=== PATIENT | female | born 1965 | race Caucasian/White ===

== ENCOUNTER 2017-07-03 00:38 | Inpatient (IN) | payer OTHER ==
[2017-07-02 15:54] LABS: INR 0.89
[~2017-07-03] VITALS: Ht 157.5 cm; Wt 104.8 kg
[2017-07-03] VITALS (16 sets, daily range): BP systolic 126–158; BP diastolic 78–98
[~2017-07-03 00:38] MED LIST: DICL100T54 PO; GABA-549 PO; HYDR-4309 PO; LEVO-3 PO; LEVO50TA86 PO; MELO-149 PO
[2017-07-03] MEDS ORDERED: ONDANSETRON 4 MG/2 ML VIAL ONE (05:57)
[2017-07-03] MEDS ORDERED: DEXAMETHASONE SOD PHOS 10MG/ML ONE (05:57)
[2017-07-03] MEDS ORDERED: PROPOFOL EMUL(*) 10MG/ML 20 ML 20 ML ONE (05:57)
[2017-07-03] MEDS ORDERED: LIDOCAINE MPF 1% 5 ML VIAL ONE (05:57)
[2017-07-03] MEDS ORDERED: fentaNYL CITR 100 MCG/2 ML AMP ONE (05:57)
[2017-07-03] MEDS ORDERED: LIDOCAINE/SOD BICARB 8.4% SYR ID ONE (06:00)
[2017-07-03] MEDS ORDERED: TRANEXAMIC AC 1000 MG/10ML SDV 1,000 MG in DEXTROSE 5% 50 ML BAG 50 ML IV ONE (06:00)
[2017-07-03] MEDS ORDERED: NORMOSOL R SOLN(*) 1000 ML BAG 1,000 ML IV PRN ×2 (06:00→10:00)
[2017-07-03] MEDS ORDERED: MIDAZOLAM 2 MG/2 ML VIAL IVP PRN (06:00)
[2017-07-03] MEDS ORDERED: FAMOTIDINE 20 MG TAB PO ONE (06:00)
[2017-07-03] MEDS ORDERED: cloNIDine EPIDUR INJ 100MCG/ML 40 MCG, ROPIVACAINE 0.5% 20 ML VIAL 25 ML, EPINEPHrine H... INJ ONE (06:00)
[2017-07-03] MEDS ORDERED: ceFAZolin(*) 2GM/D5W 50ML 50 ML IVPB ONE (06:00)
[2017-07-03] MEDS ORDERED: KETAMINE HCL 200 MG/20 ML MDV ONE (06:04)
[2017-07-03] MEDS ORDERED: HALOPERIDOL LACT 5 MG/ML VIAL IM ONE (06:07)
[2017-07-03] MEDS ORDERED: ACETAMINOPHEN(*)1000 MG/100 ML 100 ML IVPB ONE (06:07)
[2017-07-03] MEDS ORDERED: ROCURONIUM BROM 10 MG/ML 5 ML ONE (07:15)
[2017-07-03] MEDS ORDERED: ePHEDrine 25 MG/5 ML DISP.SYR IVP ONE (07:57)
[2017-07-03] MEDS ORDERED: PROMETHAZINE 25 MG/ML 1 ML AMP IVP PRN (10:00)
[2017-07-03] MEDS ORDERED: FLUSH 10 ML SYR IVP PRN (10:00)
[2017-07-03] MEDS ORDERED: MAGNESIUM HYDROXIDE* 30ML UDCP PO PRN (10:00)
[2017-07-03] MEDS ORDERED: NALOXONE HCL 0.4 MG/ML VIAL IVP PRN (10:00)
[2017-07-03] MEDS ORDERED: ZOLPIDEM TARTRATE 5 MG TAB PO PRN (10:00)
[2017-07-03] MEDS ORDERED: BISACODYL 10 MG SUPP PR PRN (10:00)
[2017-07-03] MEDS ORDERED: ONDANSETRON 4 MG/2 ML VIAL IVP PRN (10:00)
[2017-07-03] MEDS ORDERED: MORPHINE SULFATE 30 MG PCA IV PRN (10:00)
--- NOTE | 2017-07-03 10:13 | RADIOLOGY IMAGING REPORT ---
FACILITY: [facility] PATIENT NAME: Emely Staton : 1965 MR: [id number] V: [id number] EXAM DATE: ORDERING PHYSICIAN: AKASH BLACKWELL TECHNOLOGIST: Location: [facility] [place] Patient: Emely Staton : 1965 Visit/Account:[id number] Date of Sevice: 07/03/2017 Right knee Indication: Right total knee arthroplasty Comparison: None available Findings: 2 views right knee were obtained. Operative changes seen from right total knee arthroplasty. Alignment anatomic. Components are well se ated. Expected soft tissue changes. IMPRESSION: 1. Expected postoperative appearance status post right total knee arthroplasty Report Dictated By: Alex Fernández MD at 07/03/2017 10:09 AM Report E-Signed By: Alex Fernández MD at 07/03/2017 10:09 AM WSN:[id number]
[2017-07-03] MEDS ORDERED: HYDR-385 PO (10:56)
[2017-07-03] MEDS: ACETAMINOPHEN 500 MG TAB PO SCH ×3 (12:40→23:08)
--- NOTE | 2017-07-03 14:52 | OPERATIVE REPORT 1 ---
EVENT DATE: July 03, 2017 SURGEON: Seb Cee MD ANESTHESIOLOGIST: Andrew Sparks MD ANESTHESIA: Spinal followed by general. WARRANTY ADMINISTRATOR: MICHAEL Andrade, BREWERY PUMPER PREOPERATIVE DIAGNOSIS Right knee degenerative disease with flexion contracture and varus alignment. 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 PROCEDURE PERFORMED Right total knee arthroplasty. IMPLANTS MicroPort medial pivot shift system with a 4 femur, 4 tibia, 10 mm CS insert, 29 x 8 symmetric patella, femur cut 6 degrees valgus, 10 mm. We utilized 1 gram of IV tranexamic acid 10 minutes prior to the start and after the implantation. We utilized 50 mL of our standard ropivacaine/Toradol cocktail at the end of the case and a ZipLine wound closure system. Two packages of [employer] cobalt blue cement. SPECIMENS None. COMPLICATIONS None. ESTIMATED BLOOD LOSS Approximately 125 mL. OPERATION Patient received 2 grams of IV Ancef, was then brought to the OR, where Dr. Sparks performed~spinal followed by general anesthesia. Right lower extremity was then prepped and draped in the usual sterile fashion. ~Ten minutes prior to the start, Dr. Sparks gave 1 gram of IV tranexamic acid. We then made a midline incision followed by a medial parapatellar arthrotomy. ~Tourniquet had been placed, but we did not utilize it throughout the procedure. Patients body habitus made the exposure and the total procedure more lengthy and more difficult than average. We achieved hemostasis as we went by Bovie and pressure. We everted the patella, removed the fat pad by Bovie and dissected subperiosteally along the medial tibial plateau to the level of the semimembranosus insertion. We then brought the knee up into flexion, released the ACL and PCL subperiosteally by Bovie. We noted eburnation in the medial compartment, high grade 3 changes in the patellofemoral compartment, and grade 2 changes in the lateral compartment, grade 2 and 3 in the lateral femoral condyle, minimal changes in the lateral tibial plateau. We placed appropriate retractors and removed the distal cartilage from the femoral condyles by sagittal saw. We then utilized a step cut drill to broach the canal, placed our intramedullary guide and set this up at 6 degrees valgus, 10 mm cut. We made our cut with care taken to protect the soft tissues. We then placed our 3 degree external rotation guide, referencing out the epicondyles, posterior condyles, and the anterior flange and sized the femur to a 4. We then placed Z retractors, and with care taken to protect the soft tissues, we made our 4 cuts. We then brought the tibia anteriorly on the femur with appropriate retractors. Step cut drill was utilized to broach the tibial canal. We then placed our intramedullary tibial guide, and referencing 10 mm of the least involved lateral tibial plateau, we set up the rotation and pinned the block into place. With appropriate retractors placed, we made our tibial cut. This was sized to a #4. The stump of the ACL and PCL and medial and lateral meniscus were then removed by Bovie. Posterior osteophytes were removed by curved osteotome, and the capsule was elevated with a Yanez elevator. ~We then placed our trial tibial base place, #4, referencing from the previous rotation. ~We pinned this in place, placed a 10 mm trial insert, then our #4 femur. We achieved full extension. She had stability through varus, valgus stress. She flexed to about 110 and with pressure 115, limited significantly by body habitus. ~The patella tracked satisfactorily. At 90 degrees, we had a satisfactory anterior drawer and rotation. We brought the knee up in full extension. Patella was measured, 23 mm in depth. This was cut down 8 mm to 15 mm with appropriate guide. We then placed our guide for a 29 x 8 symmetric patella. Peg holes were drilled, and our trial was placed. Knee was brought up into partial flexion. We drilled the peg holes for the femur, placed our pegs, and then cut for trochlear chip, and this was placed. Again we had the aforementioned range of motion and stability. Patella, femur, tibial insert were removed. Retractors were replaced. Guide tower was placed, and we cut, reamed and punched this. This was removed. Bone plug was placed in the distal femur. We started to mix two packages of [employer]Joy cobalt blue cement as we copiously irrigated the joint surfaces. We drilled eburnated bone on the lateral aspect of the patella and the medial tibial plateau with a 1.5 mm drill bit. We dried the surfaces, and then starting at the tibia, this was cemented into place followed by our permanent 10 mm CS insert then our femur. Excess cement was removed. ~Knee was placed in full extension with axial compression while we cemented the patella. ~Prior to the cement implantation, we injected 10 mL of our cocktail in the posterior capsule, and then the remaining portion at this point in and around the distal quad mechanism. After 15 minutes, the cement had hardened. We copiously irrigated by pulse lavage once again. We utilized approximately 5 liters of fluid. We then closed the arthrotomy with # 2 Vicryl in figure-of eight suture fashion followed by 2-0 Vicryl for subcutaneous tissues and a ZipLine wound closure system for skin. This was done at 45 degrees. Wounds were then dressed, compressive dressing applied. Patient was extubated and taken to recovery in stable condition. ~Hospitalist team will be consulted for medical management and anticoagulation, PT and OT for rehab. OSWALDO
[2017-07-03] MEDS: oxyCODONE HCL 5 MG CAP PO PRN ×2 (16:16→20:58)
--- NOTE | 2017-07-03 17:08 | Hospitalist Progress Note ---
Subjective Progress Notes Subjective No cp/sob. 125cc of EBL. 1400cc of crystalloid, TXA and dexamethasone given intra-op. Physical Exam Vital Signs Date Time Temp Pulse Resp B/P (MAP) Pulse Ox O2 Delivery O2 Flow Rate FiO2 07/03/17 15:53 98.0 79 16 135/80 (98) 95 Room Air Intake and Output 07/04/17 07:00 Intake Total 2460 ml Output Total 125 ml Balance 2335 ml Intake Oral 460 ml IV Total 2000 ml Output Estimated Blood Loss 125 ml # Voids 1 General Appearance: Alert, Awake, No Acute Distress Cardiovascular: Regular Rate and Rhythm Respiratory: Clear to Auscultation Extremities: No Edema Assessment and Plan Problems: (1) Status post knee replacement Status: Acute Assessment & Plan: No CV/pulmonary issues. The patient denies any history of DVT/PE. The patient will be on ASA 325mg a day for 30 days after surgery. (2) Hypothyroid Status: Chronic Assessment & Plan: Continue chronic levothyroxine. (3) Hot flash, menopausal Status: Chronic Assessment & Plan: Continue chronic gabapentin Exam Sepsis Risk: No Definite Risk Problem Qualifiers (1) Status post knee replacement: Laterality: right Qualified Codes: Z96.651 - Presence of right artificial knee joint HORACIO TURCIOS MD Jul 03, 2017 17:08
[2017-07-03] MEDS: ceFAZolin(*) 2GM/D5W 50ML 50 ML IVPB SCH (17:39)
[2017-07-03] MEDS: GABAPENTIN 300 MG CAP PO SCH (20:52)
[2017-07-04 00:04] VITALS: BP 136/75
[2017-07-04] MEDS: oxyCODONE HCL 5 MG CAP PO PRN ×6 (01:05→21:36)
[2017-07-04] MEDS: ceFAZolin(*) 2GM/D5W 50ML 50 ML IVPB SCH ×2 (01:05→09:16)
[2017-07-04 04:06] VITALS: BP 121/64
[2017-07-04] MEDS: LEVOTHYROXINE SOD 0.088 MG TAB PO SCH (05:14)
[2017-07-04] MEDS: ACETAMINOPHEN 500 MG TAB PO SCH ×3 (05:14→17:37)
[2017-07-04] MEDS ORDERED: OXYC-869 PO (07:18)
[2017-07-04 07:35] VITALS: BP 128/74
--- NOTE | 2017-07-04 07:42 | Hospitalist Progress Note ---
Subjective Progress Notes Subjective No cp/sob. No concerns from staff. Physical Exam Vital Signs Date Time Temp Pulse Resp B/P (MAP) Pulse Ox O2 Delivery O2 Flow Rate FiO2 07/04/17 04:06 99.0 93 14 121/64 (83) 89 Room Air 07/03/17 21:26 2.0 General Appearance: Alert, Awake, No Acute Distress Assessment and Plan Problems: (1) Status post knee replacement Status: Acute Assessment & Plan: No CV/pulmonary issues. The patient denies any history of DVT/PE. The patient will be on ASA 325mg a day for 30 days after surgery. (2) Hypothyroid Status: Chronic Assessment & Plan: Continue chronic levothyroxine. (3) Hot flash, menopausal Status: Chronic Assessment & Plan: Continue chronic gabapentin Exam Sepsis Risk: No Definite Risk Problem Qualifiers (1) Status post knee replacement: Laterality: right Qualified Codes: Z96.651 - Presence of right artificial knee joint HORACIO TURCIOS MD Jul 04, 2017 07:42
[2017-07-04] MEDS: ASPIRIN 325 MG TAB PO SCH (09:16)
[2017-07-04 11:52] VITALS: BP 136/84
[2017-07-04 16:50] VITALS: BP 149/85
[2017-07-04 20:17] VITALS: BP 151/84
[2017-07-04] MEDS: GABAPENTIN 300 MG CAP PO SCH (21:35)
[2017-07-05] MEDS: ACETAMINOPHEN 500 MG TAB PO SCH ×2 (00:29→05:39)
[2017-07-05 00:31] VITALS: BP 156/82
[2017-07-05] MEDS: oxyCODONE HCL 5 MG CAP PO PRN ×2 (02:40→09:32)
[2017-07-05 02:41] VITALS: BP 143/78
[2017-07-05] MEDS: LEVOTHYROXINE SOD 0.088 MG TAB PO SCH (05:40)
[2017-07-05 08:10] VITALS: BP 125/85
[2017-07-05] MEDS ORDERED: ASPI-757 PO (08:23)
--- NOTE | 2017-07-05 08:25 | Hospitalist Progress Note ---
Subjective Progress Notes Subjective No change overnight. Patient is ready to go home. Patient Complains of: Cardiovascular: No: Chest Pain Respiratory: No: Shortness of Breath Physical Exam Vital Signs Date Time Temp Pulse Resp B/P (MAP) Pulse Ox O2 Delivery O2 Flow Rate FiO2 07/05/17 08:10 97.9 99 16 125/85 (98) 93 Room Air 07/05/17 02:41 1.0 General Appearance: Alert, Awake, No Acute Distress, Afebrile Cardiovascular: Regular Rate and Rhythm Respiratory: No Respiratory Distress, Clear to Auscultation Extremities: No Edema Psych: Alert & Oriented X3 Assessment and Plan Problems: (1) Status post knee replacement Status: Acute Assessment & Plan: The patient will be on ASA 325mg a day for 30 days after surgery. (2) Hypothyroid Status: Chronic Assessment & Plan: Continue chronic levothyroxine. (3) Hot flash, menopausal Status: Chronic Assessment & Plan: Continue chronic gabapentin Exam Sepsis Risk: No Definite Risk Problem Qualifiers (1) Status post knee replacement: Laterality: right Qualified Codes: Z96.651 - Presence of right artificial knee joint KEY GUILLERMO SHERIFF SERGEANT Jul 05, 2017 08:25
[2017-07-05] MEDS: ASPIRIN 325 MG TAB PO SCH (09:31)
== END 2017-07-05 10:32 | disposition home or self-care (01) | DRG 470 ==
LOC: OR 00:38 → MED 10:45 → INTOOBSV 10:45 → OBSVTOIN 10:45 → UNDODISOB 07-05 10:32
PROVIDERS: ADMIT Orthopaedic Surgery; ATTEND Orthopaedic Surgery
PROC: 0SRC0J9 Replacement of Right Knee Joint with Synthetic Substitute, Cemented, Open Approach (ICD-10-PCS; principal; 2017-07-03 07:10)
DX: M17.11 Unilateral primary osteoarthritis, right knee (principal); Z68.41 Body mass index [BMI] 40.0-44.9, adult; M21.161 Varus deformity, not elsewhere classified, right knee; E66.01 Morbid (severe) obesity due to excess calories; E03.9 Hypothyroidism, unspecified; M24.561 Contracture, right knee; N95.1 Menopausal and female climacteric states; Z87.891 Personal history of nicotine dependence
CPT/HCPCS: 36415; 85610; 86850; 86900; 86901; 96372; 97161; C1713; C1776; J0131; J0171; J0690; J0735; J1100; J1630; J1885; J2001; J2250; J2405; J2704; J2795; J3010; J3490; J7050; J7060